=== PATIENT | female | born 1985 | race Caucasian/White ===

== ENCOUNTER 2017-09-20 09:09 | Outpatient (CLI) | END 2017-09-20 10:57 | disposition home or self-care (01) ==

== ENCOUNTER 2017-10-12 01:34 | Inpatient (IN) | END 2017-10-27 18:15 | disposition left against medical advice (07) | DRG 781 ==

== ENCOUNTER 2017-12-23 22:05 | Inpatient (IN) | END 2017-12-27 12:35 | disposition home or self-care (01) | DRG 766 ==